=== PATIENT | male | born 1970 | race Caucasian/White ===

== ENCOUNTER 2020-06-18 13:42 | Emergency (ER) | payer MEDICAID, SELFPAY ==
--- NOTE | 2020-06-18 14:58 | ED.GENADULT ---
HPI - General Adult General Chief complaint: Abdominal Pain <Isa Gil NP - Last Filed: 06/18/20 15:03> Stated complaint: fluid in abd <Isa Gil NP - Last Filed: 06/18/20 15:03> Time Seen by Provider: 06/18/20 14:57 <Isa Gil NP - Last Filed: 06/18/20 15:03> Source: patient <Myah Amato MD - Last Filed: 06/19/20 06:42> History of Present Illness HPI narrative: This is a 49-year-old male current alcohol drinker, states last drink was approximately 14 hours ago, who has known liver cirrhosis and is following up for symptoms associated with the abdominal ascites that include increasing shortness of breath as well as bilateral lower leg swelling. Otherwise, he denies fevers, chills, diarrhea. <Myah Amato MD - Last Filed: 06/19/20 06:42> Related Data Home medications: Home Medications Medication Instructions Recorded Confirmed buprenorphine HCl 16 mg SUBLINGUAL DAILY 06/19/20 06/19/20 buprenorphine-naloxone [Suboxone] 2 film BUCCAL DAILY 06/19/20 06/19/20 clonidine HCl 0.2 mg PO BID 06/19/20 06/19/20 fluticasone propionate [Flovent 2 puff INHALATION BID 06/19/20 06/19/20 HFA] furosemide 40 mg PO DAILY 06/19/20 06/19/20 gabapentin 300 mg PO TID 06/19/20 06/19/20 hydroxyzine HCl See Rx Instructions .ROUTE 06/19/20 06/19/20 .COMPLEX PRN naloxone [Narcan] 1 spray INTRANASAL QD-BID 06/19/20 06/19/20 quetiapine 50 mg PO TID PRN 06/19/20 06/19/20 quetiapine 300 mg PO BEDTIME 06/19/20 06/19/20 spironolactone 25 mg PO BID 06/19/20 06/19/20 Previous Rx's Medication Instructions Recorded magnesium oxide 800 mg PO BID #2 tab 06/19/20 <Isa Gil NP - Last Filed: 06/18/20 15:03> Allergies/adverse reactions: Allergies Allergy/AdvReac Type Severity Reaction Status Date / Time No Known Allergies Allergy Verified 06/19/20 02:43 [No Known Allergies*] <Isa Gil NP - Last Filed: 06/18/20 15:03> Review of Systems Review of Systems: Pertinent positives and negatives as stated in HPI 10 point review systems is otherwise negative. <Myah Amato MD - Last Filed: 06/19/20 06:42> PMFSH Past Medical History Medical History: Medical History (Updated 06/19/20 @ 06:22 by Myah Amato MD) Cirrhosis Legally blind <Isa Gil NP - Last Filed: 06/18/20 15:03> Social History Social History: Social History Advance Directives: No <Isa Gil NP - Last Filed: 06/18/20 15:03> Physical Exam Vital Signs: Vital Signs: Last Vital Signs Temp 98.8 F 06/19/20 01:48 Pulse 106 H 06/19/20 01:48 Resp 14 06/19/20 01:48 BP 96/48 L 06/19/20 01:48 Pulse Ox 99 06/19/20 01:48 Body Mass Index 27.1 <Isa Gil NP - Last Filed: 06/18/20 15:03> Vital Signs: Last Vital Signs Temp 98.8 F 06/19/20 01:48 Pulse 106 H 06/19/20 01:48 Resp 14 06/19/20 01:48 BP 96/48 L 06/19/20 01:48 Pulse Ox 99 06/19/20 01:48 Body Mass Index 27.1 <Myah Amato MD - Last Filed: 06/19/20 06:42> VITAL SIGNS: Reviewed. GENERAL: Well developed, well nourished, in no acute distress. HEAD: Normocephalic/atraumatic, EYES: PERRLA, EOMI intact without pain NOSE: Nares patent bilateral OROPHARYNX: no oral lesions noted, posterior pharynx clear NECK: Supple, no adenopathy LUNGS: Normal breath sounds. No adventitious sounds or accessory muscle use. SpO2<99> CARDIOVASCULAR: Regular rate and rhythm without noted murmurs, no JVD or lower extremity edema. ABDOMEN: Distended, positive fluid wave, no caput medusa, mild tenderness on palpation with bowel sounds. No rigidity. No guarding. No palpable masses or hernias noted MUSCULOSKELETAL: No tenderness, deformities, or effusions noted on gross inspection. EXTREMITIES: No cyanosis, clubbing or edema. NEUROLOGIC: Alert and oriented x 4. <Myah Amato MD - Last Filed: 06/19/20 06:42> Course Course Course Narrative: [id number]-This is a rapid medical exam. 49 yo male with liver cirrhosis here with abdominal distention, had para in 04/2020 with 3 L removed. Now having abdominal distention with alot of abdominal pain, lower extremity swelling and SOB with nausea x several days. No fevers/chills/vomiting. Will order labs including blood cultures, lactic acid in prep for para. Deferred additional testing, HPI, PE, ROS for primary provider. <Isa Gil NP - Last Filed: 06/18/20 15:03> This is a 49-year-old male with history and clinical presentation consistent with alcoholic cirrhosis and subsequent abdominal ascites that is leading to majority of his quell as such as shortness of breath as well as lower extremity swelling. Patient is afebrile, not jaundiced, and his last drink was 14 hours ago. On review of all investigations is no evidence of systemic infection and noted low magnesium was repleted with oral version due to significant difficulty in obtaining venous access. Patient underwent a paracentesis at bedside with the removal of 3.5 L and almost complete resolution of his symptoms. On review of those results there were no organisms noted to suggest SBP. Patient has been otherwise in stable condition and will be discharged home in stable condition with instructions to follow-up with his primary care provider for continued monitoring and request for scheduling of regular paracentesis. <Myah Amato MD - Last Filed: 06/19/20 06:42> Procedures Paracentesis Time Out Performed: No <Myah Amato MD - Last Filed: 06/19/20 06:42> Indication: Ascites <Myah Amato MD - Last Filed: 06/19/20 06:42> Procedure: therapeutic paracentesis <Myah Amato MD - Last Filed: 06/19/20 06:42> Medical Decision Making Lab Data Result diagrams: : 06/18/20 16:02 06/18/20 16:02 <Isa Gil, MECHANICAL PROCESS ENGINEER - Last Filed: 06/18/20 15:03> Labs: Lab Results 06/18/20 06/18/20 06/18/20 Range/Units 00:25 16:02 16:02 WBC 8.6 (4.8-10.8) X10*3/uL RBC 3.76 L (4.60-5.80) X10*6/uL Hgb 11.9 L (14.0-18.0) g/dl Hct 33.9 L (42-52) % MCV 90.2 (80-98) fL MCH 31.6 (27.0-33.0) pg MCHC 35.1 (31.0-36.0) g/dl RDW 19.3 H (11.0-16.0) % Plt Count 359 (160-400) X10*3/uL MPV 9.2 L (9.4-12.4) fL Immature Gran % (Auto) 0.3 (0.0-0.4) % Neut % (Auto) 49.2 (45-73) % Lymph % (Auto) 38.1 (20-40) % Griggs % (Auto) 10.6 (2-11) % Eos % (Auto) 1.5 (0-4) % Baso % (Auto) 0.3 (0-2) % Lymph # (Auto) 3.3 (1.2-4.9) X10*3/uL Griggs # (Auto) 0.9 (0.1-1.2) X10*3/uL Eos # (Auto) 0.1 (0.0-0.4) X10*3/uL Baso # (Auto) 0.0 (0.0-0.2) X10*3/uL Abs Immat Gran (auto) 0.03 (0.00-0.03) X10*3/uL Absolute Neuts (auto) 4.2 (2.0-8.3) X10*3/uL Absolute Nucleated RBC 0.000 (0.0-0.012) X10*3/uL Nucleated RBC % (auto) 0.0 (0.0-0.2) /100WBC PT 15.4 H (10.8-13.0) SEC INR 1.3 H (0.9-1.1) Sodium (135-145) mmol/L Potassium (3.3-5.1) mmol/l Chloride (96-108) mmol/L Carbon Dioxide (22-29) mmol/L Anion Gap (12-20) BUN (9-16) mg/dL Creatinine (0.5-1.4) mg/dL Estim Creat Clear Calc Estimated GFR Random Glucose (60-115) mg/dL Lactic Acid 2.9 H* (0.5-2.0) mmol/L Lactic Acid Fup @ 2Hr (0.5-2.0) mmol/L Calcium (8.4-10.2) mg/dL Magnesium (1.6-2.6) mg/dL Total Bilirubin (0.0-1.0) mg/dL Direct Bilirubin (0.0-0.5) mg/dL AST (5-37) U/L ALT (0-40) U/L Alkaline Phosphatase (39-117) U/L Lactate Dehydrogenase (118-273) U/L Total Protein (6.5-8.0) g/dL Albumin (3.5-5.0) g/dL Peritoneal WBC X10*3/uL Peritoneal RBC X10*6/uL Periton Lymphocytes % Peritoneal Monocytes % Peritoneal Other Cells % 06/18/20 06/19/20 06/19/20 Range/Units 16:02 00:56 03:02 WBC (4.8-10.8) X10*3/uL RBC (4.60-5.80) X10*6/uL Hgb (14.0-18.0) g/dl Hct (42-52) % MCV (80-98) fL MCH (27.0-33.0) pg MCHC (31.0-36.0) g/dl RDW (11.0-16.0) % Plt Count (160-400) X10*3/uL MPV (9.4-12.4) fL Immature Gran % (Auto) (0.0-0.4) % Neut % (Auto) (45-73) % Lymph % (Auto) (20-40) % Griggs % (Auto) (2-11) % Eos % (Auto) (0-4) % Baso % (Auto) (0-2) % Lymph # (Auto) (1.2-4.9) X10*3/uL Gr[place]gs # (Auto) (0.1-1.2) X10*3/uL Eos # (Auto) (0.0-0.4) X10*3/uL Baso # (Auto) (0.0-0.2) X10*3/uL Abs Immat Gran (auto) (0.00-0.03) X10*3/uL Absolute Neuts (auto) (2.0-8.3) X10*3/uL Absolute Nucleated RBC (0.0-0.012) X10*3/uL Nucleated RBC % (auto) (0.0-0.2) /100WBC PT (10.8-13.0) SEC INR (0.9-1.1) Sodium 134 L (135-145) mmol/L Potassium 3.6 (3.3-5.1) mmol/l Chloride 86 L (96-108) mmol/L Carbon Dioxide 38 H (22-29) mmol/L Anion Gap 14 (12-20) BUN 5 L (9-16) mg/dL Creatinine 0.64 (0.5-1.4) mg/dL Estim Creat Clear Calc 151.9 Estimated GFR > 60 Random Glucose 115 (60-115) mg/dL Lactic Acid (0.5-2.0) mmol/L Lactic Acid Fup @ 2Hr 1.9 (0.5-2.0) mmol/L Calcium 7.1 L (8.4-10.2) mg/dL Magnesium 1.2 L* (1.6-2.6) mg/dL Total Bilirubin 0.9 (0.0-1.0) mg/dL Direct Bilirubin 0.6 H (0.0-0.5) mg/dL AST 51 H (5-37) U/L ALT 15 (0-40) U/L Alkaline Phosphatase 375 H (39-117) U/L Lactate Dehydrogenase 191 (118-273) U/L Total Protein 5.9 L (6.5-8.0) g/dL Albumin 2.3 L (3.5-5.0) g/dL Peritoneal WBC 0.121 X10*3/uL Peritoneal RBC < 0.002 X10*6/uL Periton Lymphocytes 12 % Peritoneal Monocytes 32 % Peritoneal Other Cells 56 % <Isa Gil, KRISTIN - Last Filed: 06/18/20 15:03> Lab Results 06/18/20 06/18/20 06/18/20 Range/Units 00:25 16:02 16:02 WBC 8.6 (4.8-10.8) X10*3/uL RBC 3.76 L (4.60-5.80) X10*6/uL Hgb 11.9 L (14.0-18.0) g/dl Hct 33.9 L (42-52) % MCV 90.2 (80-98) fL MCH 31.6 (27.0-33.0) pg MCHC 35.1 (31.0-36.0) g/dl RDW 19.3 H (11.0-16.0) % Plt Count 359 (160-400) X10*3/uL MPV 9.2 L (9.4-12.4) fL Immature Gran % (Auto) 0.3 (0.0-0.4) % Neut % (Auto) 49.2 (45-73) % Lymph % (Auto) 38.1 (20-40) % Griggs % (Auto) 10.6 (2-11) % Eos % (Auto) 1.5 (0-4) % Baso % (Auto) 0.3 (0-2) % Lymph # (Auto) 3.3 (1.2-4.9) X10*3/uL Griggs # (Auto) 0.9 (0.1-1.2) X10*3/uL Eos # (Auto) 0.1 (0.0-0.4) X10*3/uL Baso # (Auto) 0.0 (0.0-0.2) X10*3/uL Abs Immat Gran (auto) 0.03 (0.00-0.03) X10*3/uL Absolute Neuts (auto) 4.2 (2.0-8.3) X10*3/uL Absolute Nucleated RBC 0.000 (0.0-0.012) X10*3/uL Nucleated RBC % (auto) 0.0 (0.0-0.2) /100WBC PT 15.4 H (10.8-13.0) SEC INR 1.3 H (0.9-1.1) Sodium (135-145) mmol/L Potassium (3.3-5.1) mmol/l Chloride (96-108) mmol/L Carbon Dioxide (22-29) mmol/L Anion Gap (12-20) BUN (9-16) mg/dL Creatinine (0.5-1.4) mg/dL Estim Creat Clear Calc Estimated GFR Random Glucose (60-115) mg/dL Lactic Acid 2.9 H* (0.5-2.0) mmol/L Lactic Acid Fup @ 2Hr (0.5-2.0) mmol/L Calcium (8.4-10.2) mg/dL Magnesium (1.6-2.6) mg/dL Total Bilirubin (0.0-1.0) mg/dL Direct Bilirubin (0.0-0.5) mg/dL AST (5-37) U/L ALT (0-40) U/L Alkaline Phosphatase (39-117) U/L Lactate Dehydrogenase (118-273) U/L Total Protein (6.5-8.0) g/dL Albumin (3.5-5.0) g/dL Peritoneal WBC X10*3/uL Peritoneal RBC X10*6/uL Periton Lymphocytes % Peritoneal Monocytes % Peritoneal Other Cells % 06/18/20 06/19/20 06/19/20 Range/Units 16:02 00:56 03:02 WBC (4.8-10.8) X10*3/uL RBC (4.60-5.80) X10*6/uL Hgb (14.0-18.0) g/dl Hct (42-52) % MCV (80-98) fL MCH (27.0-33.0) pg MCHC (31.0-36.0) g/dl RDW (11.0-16.0) % Plt Count (160-400) X10*3/uL MPV (9.4-12.4) fL Immature Gran % (Auto) (0.0-0.4) % Neut % (Auto) (45-73) % Lymph % (Auto) (20-40) % Griggs % (Auto) (2-11) % Eos % (Auto) (0-4) % Baso % (Auto) (0-2) % Lymph # (Auto) (1.2-4.9) X10*3/uL Griggs # (Auto) (0.1-1.2) X10*3/uL Eos # (Auto) (0.0-0.4) X10*3/uL Baso # (Auto) (0.0-0.2) X10*3/uL Abs Immat Gran (auto) (0.00-0.03) X10*3/uL Absolute Neuts (auto) (2.0-8.3) X10*3/uL Absolute Nucleated RBC (0.0-0.012) X10*3/uL Nucleated RBC % (auto) (0.0-0.2) /100WBC PT (10.8-13.0) SEC INR (0.9-1.1) Sodium 134 L (135-145) mmol/L Potassium 3.6 (3.3-5.1) mmol/l Chloride 86 L (96-108) mmol/L Carbon Dioxide 38 H (22-29) mmol/L Anion Gap 14 (12-20) BUN 5 L (9-16) mg/dL Creatinine 0.64 (0.5-1.4) mg/dL Estim Creat Clear Calc 151.9 Estimated GFR > 60 Random Glucose 115 (60-115) mg/dL Lactic Acid (0.5-2.0) mmol/L Lactic Acid Fup @ 2Hr 1.9 (0.5-2.0) mmol/L Calcium 7.1 L (8.4-10.2) mg/dL Magnesium 1.2 L* (1.6-2.6) mg/dL Total Bilirubin 0.9 (0.0-1.0) mg/dL Direct Bilirubin 0.6 H (0.0-0.5) mg/dL AST 51 H (5-37) U/L ALT 15 (0-40) U/L Alkaline Phosphatase 375 H (39-117) U/L Lactate Dehydrogenase 191 (118-273) U/L Total Protein 5.9 L (6.5-8.0) g/dL Albumin 2.3 L (3.5-5.0) g/dL Peritoneal WBC 0.121 X10*3/uL Peritoneal RBC < 0.002 X10*6/uL Periton Lymphocytes 12 % Peritoneal Monocytes 32 % Peritoneal Other Cells 56 % <Myah Amato MD - Last Filed: 06/19/20 06:42> Discharge Plan Discharge Clinical Impression: Hypomagnesemia Abdominal ascites Qualifiers: Ascites type: due to alcoholic cirrhosis Qualified Code(s): K70.31 - Alcoholic cirrhosis of liver with ascites <Isa Gil NP - Last Filed: 06/18/20 15:03> Patient Disposition: Home, Self-Care <Isa Gil NP - Last Filed: 06/18/20 15:03> Instructions: Ascites (ED), Paracentesis (DC) <Isa Gil NP - Last Filed: 06/18/20 15:03> Additional Instructions: 1. Please resume all home medications as prescribed. 2. Please follow-up with your primary care provider by calling the office today as you need to set up an appointment. Please do not hesitate to return to the emergency department should you have any acute worsening of any of your symptoms. <Isa Gil NP - Last Filed: 06/18/20 15:03> Prescriptions: New magnesium oxide 400 mg (241.3 mg magnesium) tablet 800 mg PO BID Qty: 2 RF: 0 No Action furosemide 40 mg Tablet 40 mg PO DAILY RF: 0 quetiapine 300 mg Tablet 300 mg PO BEDTIME RF: 0 spironolactone 25 mg Tablet 25 mg PO BID RF: 0 clonidine HCl 0.2 mg Tablet 0.2 mg PO BID RF: 0 gabapentin 300 mg Capsule 300 mg PO TID RF: 0 hydroxyzine HCl 25 mg Tablet See Rx Instructions .ROUTE .COMPLEX PRN (Reason: Anxiety) RF: 0 Flovent HFA 110 mcg/actuation Hfa Aerosol Inhaler 2 puff INHALATION BID RF: 0 buprenorphine HCl 8 mg Tablet, Sublingual 16 mg SUBLINGUAL DAILY RF: 0 quetiapine 50 mg Tablet 50 mg PO TID PRN (Reason: Anxiety) RF: 0 buprenorphine-naloxone [Suboxone] 8-2 mg Film 2 film BUCCAL DAILY RF: 0 Narcan 4 mg/actuation [place],Non-Aerosol 1 spray INTRANASAL QD-BID RF: 0 <Isa Gil NP - Last Filed: 06/18/20 15:03> Referrals: Maricarmen Matthews MD [Primary Care Provider] - 2 days (Please re-evaluate and manage patient's alcoholic abdominal ascites and consider scheduling patient for regular outpatient paracentesis for better symptom control.) <Isa Gil NP - Last Filed: 06/18/20 15:03>
[2020-06-18 15:00] VITALS: BP 111/62; PULSE 105; RESP 18; TEMP 36.6; O2SAT 99; BMI 27.1
[2020-06-18 16:41] LABS: Basophils Percent Auto 0.3 % (0-2); Eosinophils Absolute Auto 0.1 X10*3/uL (0.0-0.4); Eosinophils Percent Auto 1.5 % (0-4); Hematocrit 33.9 % (42-52); Hemoglobin 11.9 g/dl (14.0-18.0); Imm Gran Abs Auto 0.03 X10*3/uL (0.00-0.03); Imm Gran Pct Auto 0.3 % (0.0-0.4); Lymphocytes Absolute Auto 3.3 X10*3/uL (1.2-4.9); Lymphocytes Percent Auto 38.1 % (20-40); MANUAL DIFF FLAG NO; Mean Corpuscular HGB Conc 35.1 g/dl (31.0-36.0); Mean Corpuscular Hemoglobin 31.6 pg (27.0-33.0); Mean Corpuscular Volume 90.2 fL (80-98); Mean Platelet Volume 9.2 fL (9.4-12.4); Monocytes Absolute Auto 0.9 X10*3/uL (0.1-1.2); Monocytes Percent Auto 10.6 % (2-11); Neutrophils Absolute Auto 4.2 X10*3/uL (2.0-8.3); Neutrophils Percent Auto 49.2 % (45-73); Platelet Count 359 X10*3/uL (160-400); Red Blood Count 3.76 X10*6/uL (4.60-5.80); Red Cell Distribution Width 19.3 % (11.0-16.0); White Blood Count 8.6 X10*3/uL (4.8-10.8)
[2020-06-18 16:48] LABS: INTERNATIONAL NORM RATIO 1.3 (0.9-1.1); Prothrombin Time 15.4 SEC (10.8-13.0)
[2020-06-18 17:15] LABS: Alanine Aminotransferase 15 U/L (0-40); Albumin Level 2.3 g/dL (3.5-5.0); Alkaline Phosphatase 375 U/L (39-117); Anion Gap 14 (12-20); Aspartate Amino Transferase 51 U/L (5-37); Bilirubin Direct 0.6 mg/dL (0.0-0.5); Bilirubin Total 0.9 mg/dL (0.0-1.0); Blood Urea Nitrogen 5 mg/dL (9-16); Calcium 7.1 mg/dL (8.4-10.2); Carbon Dioxide 38 mmol/L (22-29); Chloride 86 mmol/L (96-108); Creatinine Clr Calc Pharmacy 151.9; Estimated Glomerular Filt Rate > 60; Glucose Random 115 mg/dL (60-115); Magnesium 1.2 mg/dL (1.6-2.6); Potassium 3.6 mmol/l (3.3-5.1); Sodium 134 mmol/L (135-145); Total Protein 5.9 g/dL (6.5-8.0)
[2020-06-18 22:24] LABS: Lactate Dehydrogenase 191 U/L (118-273)
--- NOTE | 2020-06-19 00:06 | PC.NURSE ---
PATIENT IS A DIFFICULT STICK. PHLEBOTOMY CONTACTED BY LOUISE MAS.
[2020-06-19] MEDS: Lidocaine HCl 2 % MPF 5 ML VIAL 10 ML SUBCUT (00:56)
[2020-06-19 01:09] LABS: Lactic Acid 2.9 mmol/L (0.5-2.0)
[2020-06-19 01:29] LABS: BF Shift QC OK YES; Man Diluent Bkgrd OK YES; RBC Peritoneal Fluid < 0.002 X10*6/uL; WBC Peritoneal Fluid 0.121 X10*3/uL
[2020-06-19 01:30] LABS: MN% 0.1 %
[2020-06-19 01:48] VITALS: BP 96/48; PULSE 106; RESP 14; TEMP 37.1; O2SAT 99
[2020-06-19 01:52] LABS: Lymphocyte Peritoneal Fl 12 %; Monocytes Peritoneal Fl 32 %
[2020-06-19 01:53] LABS: Other Peritioneal Fl 56 %
[2020-06-19 02:00] VITALS: BP 123/76; PULSE 72; RESP 16; TEMP 36.6; O2SAT 97
--- NOTE | 2020-06-19 02:00 | PC.NURSE ---
PATIENT IS A DIFFICULT STICK, DESPITE MULTIPLE ATTEMPTS AT OBTAINING IV ACCESS, WITH AND WITHOUT ULTRASOUND GUIDANCE. PROVIDER AWARE, SUGGESTED IJ/EJ INSERTION.
[2020-06-19 02:37] LABS: Reflex Lactate? Lactic Acid Added
--- NOTE | 2020-06-19 02:49 | PC.NURSE ---
PATIENT CONTINUES TO NOT HAVE IV ACCESS AT THIS TIME, AND UNABLE TO ADMINISTER MEDICATIONS UNTIL IV ACCESS IS ESTABLISHED. AWARE. PATIENT SLEEPING AT THIS TIME, NO ACUTE DISTRESS NOTED. RESPIRATIONS EVEN/UNLABORED. PARACENTESIS PERFORMED EARLIER BY AND LOUISE MAS AT BEDSIDE.
--- NOTE | 2020-06-19 03:11 | PC.NURSE ---
THIS RN SPOKE WITH [facility] ST[facility] TO DISCUSS MEDICATION RECONCILIATION REGARDING THIS PATIENT. [place] [facility] [place] [phone] AT 3:30AM. PER [facility], SYSTEM IS DOWN AT THIS TIME. AWAITING MED LIST. PER LOUISE MAS, PATIENT IS REQUESTING MEDICATION FOR ANXIETY. DR.BRAZILLE HAMEED.
[2020-06-19 03:28] LABS: ~Lactic Acid-LAB USE ONLY 1.9 mmol/L (0.5-2.0)
[2020-06-19 04:00] VITALS: BP 124/82; PULSE 69; RESP 18; O2SAT 98
--- NOTE | 2020-06-19 04:10 | PC.NURSE ---
PATIENT REQUESTED AND GIVEN ICE WATER, OKAYED BY . ASKED AGAIN REGARDING OBTAINING IJ/EJ ACCESS AND PLAN OF CARE AND RE-VERBALIZED PATIENT'S LAB RESULTS.
[2020-06-19] MEDS: LORazepam 1 MG TABLET PO (05:19)
--- NOTE | 2020-06-19 05:29 | PC.NURSE ---
PATIENT MEDICATED WITH ATIVAN 1MG PO REQUESTED FOR I FEEL LIKE MY SKIN IS CRAWLING , ?WITHDRAWALS. PATIENT STATES THAT HIS LAST DRINK WAS 15 HOURS PRIOR TO ARRIVING TO ED. REQUESTED VERBAL ORDER OF ATIVAN 1MG PO TO BE ADMINISTERED/ORDERED. PATIENT IN NO ACUTE DISTRESS, NO TREMORS NOTED, WILL CONTINUE TO MONITOR.
[2020-06-19] MEDS: Magnesium Oxide 400 MG TABLET 800 MG PO (07:00)
[2020-06-19 07:37] LABS: pH Peritoneal Fluid 7.69
[2020-06-19 07:39] LABS: Albumin Peritoneal Fluid 0.6
[2020-06-19 07:40] LABS: Amylase Peritoneal Fluid 8; Glucose Peritoneal Fluid 119; LDH Peritoneal Fluid 48; Total Protein Peritoneal Fluid 1.5
== END 2020-06-19 07:15 | disposition home or self-care (01) ==
PROVIDERS: Nurse Practitioner Family; Emergency Provider Student in an Organized Health Care Education/Training Program; PCP Family Medicine
DX: E83.42 Hypomagnesemia (principal); K70.31 Alcoholic cirrhosis of liver with ascites
CPT/HCPCS: 36415; 80048; 80076; 82042; 82150; 82945; 83605; 83615; 83735; 83986; 84157; 85025; 85610; 87040; 87071; 87073; 87205; 88108; 89051; 96365; 99284